=== PATIENT | male | born 1980 | race Caucasian/White ===

== ENCOUNTER 2018-12-04 18:00 | Emergency (ER) | payer MEDICAID ==
[~2018-12-04] VITALS: Ht 180.3 cm; Wt 97.5 kg
[~2018-12-04 18:00] MED LIST: ALBU17AE3 IH; CEFP500T4 PO; CYCL10TA9 PO; FAMO20TA5 PO; FLT05NA16 NSEACH; HYDR-3456 PO; IBP800T PO; METH4TAB PO; MPR22T TP; NAPR-1071 PO; NAPR-243 PO; OMEP40CA36 PO; PRD20T PO
[2018-12-04] MEDS ORDERED: LACTATED RINGERS 1,000 ML IV ONE ×2 (18:09→19:00)
[2018-12-04 18:15] LABS: HEMOGLOBIN 15.7 G/DL (13.3-17.7); RED CELL DISTRIBUTION WIDTH 13.4 % (10.0-14.5); WHITE BLOOD COUNT 10.5 10^3/uL (4.3-11.0)
--- NOTE | 2018-12-04 18:22 | ED General ---
General Chief Complaint: Dizziness/Syncope Stated Complaint: SYNCOPE Nursing Triage Note: PT STATES HE WAS OUTSIDE ALL DAY WAITING ON HIS "RELATION" ALL DAY AND DID NOT GO INSIDE HIS HOME TO GET A DRINK OF WATER OR LEAVE HEAT. EMS REPORTS PT WAS LAYING ON HIS BED WHEN THEY ARRIVED. PT DENIES INJURY OR LOC. Nursing Sepsis Screen: No Definite Risk Source of Information: Patient (PT IS VERY LIMITED AND VAGUE HISTORIAN IN ALL ASPECTS, IS . SLIGHTLY SLOW MENTATION), Spouse (VERY LIMITED AND VAGUE HISTORIAN. ) History of Present Illness Date Seen by Provider: Dec 04, 2018 Time Seen by Provider: 18:02 Initial Comments PT ARRIVES VIA EMS FROM HOME, WITH PT HAS BEEN OUT IN THE HEAT SINCE 0900 THIS AM PT STATES HE HAD A CUP OF COFFEE THIS AM, OTHERWISE HAS NOT HAD ANYTHING TO DRINK ALL DAY, AND HAS NOT EATEN ALL DAY LAST VOID WAS ON WAKING THIS AM PT STATES HE WAS WAITING OUTSIDE FOR A FAMILY MEMBER TO SHOW UP, SO HE COULD HELP THEM MOVE. STATES THEY SHOWED UP AND THEN HE HELPED THEM MOVE FOR THE REST OF THE DAY--CLAIMS HE NEVER WENT INSIDE ALL DAY TO COOL OFF OR TO GET SOMETHING TO EAT OR DRINK WHEN HE GOT HOME, HE WAS SITTING ON THE END OF THE BED AND REPORTEDLY PASSED OUT FOR UNKNOWN LENGTH OF TIME-- WAS PRESENT, BUT IS UNABLE TO GIVE ANY DETAILS. PT DOES HAVE A HISTORY OF SEIZURES, AND STATES HE MIGHT HAVE BEEN SHAKING--NOT SURE NO INJURY, DID NOT FALL OFF THE BED OR HIT HEAD. NO INCONTINENCE WHEN EMS ARRIVED AT THE SCENE, PT WAS LAYING ON THE BED AND ROUSED TO STERNAL RUB ACCUCHECK 108 BY EMS PT C/O SLIGHT LEFT CHEST PAIN AND SLIGHT HEADACHE AT THIS TIME NO VISION CHANGES NO NAUSEA/VOMITING/DIARRHEA OR ABDOMINAL PAIN NO PALPITATIONS NO SHORTNESS OF BREATH--HAS HISTORY OF ASTHMA BUT NO PROBLEMS RECENTLY NO NECK OR BACK PAIN AT THIS TIME--HAS HISTORY OF CHRONIC BACK PAIN --TAKES IBUPROFEN AND UNKNOWN MUSCLE RELAXANT BUT HAS NOT TAKEN ANY MEDICATIONS TODAY NO PARESTHESIAS OR MOTOR DEFICITS--NO PROBLEMS WALKING OR TALKING PT HAS HAD SIMILAR-- STATES HE HAD A "HEAT STROKE" ONCE IN THE PAST, BUT CANNOT GIVE ANY DETAILS. PT CLAIMS HE HAS ONLY SLEPT 5 HOURS IN THE LAST 72 HOURS, NOT SURE WHY, THINKS "ACID REFLUX KEEPING HIM UP" PCP: DR. MILTON Allergies and Home Medications Allergies Coded Allergies: Penicillins (Unverified Allergy, Severe, ANAPHYLAXIS, 11/20/11) Home Medications Cefprozil 500 Mg Tablet, 1 EACH PO BID Prescribed by: PING HESTER on 04/18/142102 Famotidine 20 Mg Tablet, 20 MG PO DAILY, (Reported) Fluticasone Propionate 16 Gm [place], 2 SPRAYS NSEACH DAILY Prescribed by: PING HESTER on 04/18/142102 Naproxen 500 Mg Tablet, 500 MG PO BID PRN for pain Prescribed by: ISHA PORTER on 03/27/17221 Omeprazole 40 Mg Capsule.dr, 40 MG PO DAILY Prescribed by: ISHA PORTER on 03/27/17221 Patient Home Medication List Home Medication List Reviewed: Yes Review of Systems Review of Systems Constitutional: see HPI EENTM: other (RECENT SINUS AND EAR INFECTION--WAS ON ANTIBIOTICS, HAS FINISHED THOSE, SYMPTOMS BETTER) Respiratory: no symptoms reported Cardiovascular: see HPI, chest pain, syncope Gastrointestinal: No abdominal pain, No diarrhea, No nausea, No vomiting Genitourinary: see HPI, decreased output Musculoskeletal: no symptoms reported Skin: no symptoms reported Psychiatric/Neurological: See HPI Hematologic/Lymphatic: No Symptoms Reported Past [id number] Hx Patient Social History Alcohol Use: Past History (HISTORY OF HEAVY USE--"5 OR 6 BOTTLES A DAY" --BUT PT NOT EXACTLY SURE HOW MUCH HE USED TO DRINK, CLAIMS HE QUIT IN 1999) Recreational Drug Use: No (DENIES DRUG USE) Smoking Status: Current Everyday Smoker (NOT SURE HOW MANY HE SMOKES A DAY--< 1/2 PPD, HE THINKS) Type Used: Cigarettes 2nd Hand Smoke Exposure: Yes Recent Foreign Travel: No Contact w/Someone Who Travel: No Recent Infectious Disease Expo: No Recent Hopitalizations: No Physical Abuse: No Sexual Abuse: No Mistreated: No Fear: No Past Medical History Surgeries: No Respiratory: Yes Asthma Cardiac: No Neurological: Yes (SEIZURES "ALL OF LIFE" BUT NEVER SEEN NEUROLOGIST OR BEEN ON SEIZURE MEDICATIONS) Seizure Disorder Gastrointestinal: Yes Gastroesophageal Reflux Musculoskeletal: Yes Chronic Back Pain Endocrine: No HEENT: No Cancer: No Psychosocial: No Integumentary: No Blood Disorders: No Family Medical History No Pertinent Family Hx Physical Exam Vital Signs Vital Signs - First Documented 12/04/18 18:11 Temp 97.1 Pulse 86 Resp 18 B/P (MAP) 121/89 (100) Pulse Ox 98 O2 Delivery Room Air Capillary Refill : Less Than 3 Seconds Height, Weight, BMI Height: 5'11.00" Weight: 215lbs. oz. 97.946938ur; 27.89 BMI Method:Stated General Appearance: Other (EXTREMELY MALODOROUS--BODY ODOR, SITTING UPRIGHT, SMILING, SLIGHTLY SLOW MENTATION AND VERY FLAT AFFECT. ( PT'S WITH SAME MENTATION) ) HEENT: PERRL/EOMI, TMs Normal, Normal ENT Inspection, Pharynx Normal, Other (POOR DENTITION; CONJUNCTIVA MILDLY INFLAMED BILATERALLY, NO EXUDATE) Neck: Full Range of Motion, Normal Inspection, Non Tender, Supple; No Carotid Bruit, No JVD Respiratory: Normal Breath Sounds, No Accessory Muscle Use, No Respiratory Distress, Other (MILD LEFT UPPER CHEST TENDERNESS--PALPATION REPRODUCES PAIN ) Cardiovascular: Regular Rate, Rhythm, No Edema, No JVD, No Murmur, Normal Per ipheral Pulses Gastrointestinal: Normal Bowel Sounds, No Organomegaly, No Pulsatile Mass, Non Tender, Soft Back: Normal Inspection, No CVA Tenderness Extremity: Normal Capillary Refill, Normal Inspection, Normal Range of Motion, Non Tender, No Calf Tenderness, No Pedal Edema Neurologic/Psychiatric: Alert, Oriented x3 (BUT SLIGHTLY SLOW MENTATION), No Motor/Sensory Deficits, 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 Norm as Tested; No Abnormal Cerebellar Tests Skin: Normal Color, Warm/Dry, Tattoos/Piercings (TATTOOS) Progress/Results/Core Measures Suspected Sepsis Recent Fever Within 48 Hours: No Infection Criteria Present: None New/Unexplained Altered Menta: No Sepsis Screen: No Definite Risk SIRS Temperature:97.1 Pulse: 86 Respiratory Rate: 18 Laboratory Tests 12/04/18 18:07: White Blood Count 10.5 Blood Pressure 121 /89 Mean: 100 Laboratory Tests 12/04/18 18:07: Creatinine 1.26, INR Comment 1.1, Platelet Count 214, Total Bilirubin 0.9 Results/Orders Lab Results Laboratory Tests Test 12/04/18 18:07 12/04/18 18:36 Range/Units White Blood Count 10.5 4.3-11.0 10^3/uL Red Blood Count 4.71 4.35-5.85 10^6/uL Hemoglobin 15.7 13.3-17.7 G/DL Hematocrit 45 40-54 % Mean Corpuscular Volume 96 80-99 FL Mean Corpuscular Hemoglobin 33 25-34 PG Mean Corpuscular Hemoglobin Concent 35 32-36 G/DL Red Cell Distribution Width 13.4 10.0-14.5 % Platelet Count 214 130-400 10^3/uL Mean Platelet Volume 10.0 7.4-10.4 FL Prothrombin Time 14.1 12.2-14.7 SEC INR Comment 1.1 0.8-1.4 Activated Partial Thromboplast Time 31 24-35 SEC Sodium Level 140 135-145 MMOL/L Potassium Level 3.4 L 3.6-5.0 MMOL/L Chloride Level 107 98-107 MMOL/L Carbon Dioxide Level 23 21-32 MMOL/L Anion Gap 10 5-14 MMOL/L Blood Urea Nitrogen 11 7-18 MG/DL Creatinine 1.26 0.60-1.30 MG/DL Estimat Glomerular Filtration Rate > 60 BUN/Creatinine Ratio 9 Glucose Level 148 H 70-105 MG/DL Calcium Level 9.5 8.5-10.1 MG/DL Corrected Calcium 9.3 8.5-10.1 MG/DL Magnesium Level 2.1 1.8-2.4 MG/DL Total Bilirubin 0.9 0.1-1.0 MG/DL Aspartate Amino Transf (AST/SGOT) 26 5-34 U/L Alanine Aminotransferase (ALT/SGPT) 72 H 0-55 U/L Alkaline Phosphatase 66 40-136 U/L Total Creatine Kinase 60 30-200 U/L Creatine Kinase MB 0.7 <6.6 NG/ML Troponin I < 0.028 <0.028 NG/ML B-Type Natriuretic Peptide < 10.0 <100.0 PG/ML Total Protein 7.1 6.4-8.2 GM/DL Albumin 4.3 3.2-4.5 GM/DL Acetaminophen Level < 10 L 10-30 UG/ML Serum Alcohol < 10 <10 MG/DL Urine Color BENITEZ H Urine Clarity CLEAR Urine pH 5 5-9 Urine Specific [place] 1.025 H 1.016-1.022 Urine Protein 1+ H NEGATIVE Urine Glucose (UA) NEGATIVE NEGATIVE Urine Ketones 1+ H NEGATIVE Urine Nitrite NEGATIVE NEGATIVE Urine Bilirubin 1+ H NEGATIVE Urine Urobilinogen 4 H NORMAL MG/DL Urine Leukocyte Esterase 1+ H NEGATIVE Urine RBC (Auto) NEGATIVE NEGATIVE Urine RBC NONE /HPF Urine WBC 5-10 H /HPF Urine Squamous Epithelial Cells 5-10 /HPF Urine Crystals NONE /LPF Urine Bacteria TRACE /HPF Urine Casts PRESENT /LPF Urine Hyaline Casts 5-10 H /LPF Urine Mucus LARGE H /LPF Urine Culture Indicated YES Urine Opiates Screen NEGATIVE NEGATIVE Urine Oxycodone Screen NEGATIVE NEGATIVE Urine Methadone Screen NEGATIVE NEGATIVE Urine Propoxyphene Screen NEGATIVE NEGATIVE Urine Barbiturates Screen NEGATIVE NEGATIVE Ur Tricyclic Antidepressants Screen NEGATIVE NEGATIVE Urine Phencyclidine Screen NEGATIVE NEGATIVE Urine Amphetamines Screen NEGATIVE NEGATIVE Urine Methamphetamines Screen NEGATIVE NEGATIVE Urine Benzodiazepines Screen NEGATIVE NEGATIVE Urine Cocaine Screen NEGATIVE NEGATIVE Urine Cannabinoids Screen NEGATIVE NEGATIVE My Orders Orders - PING HESTER DO Ed Iv/Invasive Line Start (12/04/18 18:09) Ekg Tracing (12/04/18 18:09) Monitor-Rhythm Ecg Trace Only (12/04/18 18:09) Orthostatic Vital Signs (Adult (12/04/18 18:09) Ct Head Wo-R/O Stroke (12/04/18 18:09) Chest 1 View, Ap/Pa Only (12/04/18 18:09) Ed Iv/Invasive Line Start (12/04/18 18:09) Lactated Ringers (Lr 1000 Ml Iv Solution (12/04/18 18:09) Acetaminophen (12/04/18 18:09) Alcohol (12/04/18 18:09) BNP (12/04/18 18:09) Cbc No Diff (12/04/18 18:09) Comprehensive Metabolic Panel (12/04/18 18:09) Creatine Kinase (12/04/18 18:09) Creatine Kinase Mb (12/04/18 18:09) Drug Screen Stat (Urine) (12/04/18 18:09) Magnesium (12/04/18 18:09) Protime With Inr (12/04/18 18:09) Partial Thromboplastin Time (12/04/18 18:09) Ua Culture If Indicated (12/04/18 18:09) Troponin I (12/04/18 18:09) Ed Iv/Invasive Line Start (12/04/18 19:00) Lactated Ringers (Lr 1000 Ml Iv Solution (12/04/18 19:00) Urine Culture (12/04/18 18:36) Medications Given in ED Current Medications Medications Dose Ordered Sig/Alberto Route Start Time Stop Time Status Last Admin Dose Admin Lactated Ringer's 1,000 ml @ 0 mls/hr Q0M ONCE IV 12/04/18 18:09 12/04/18 18:12 DC 12/04/18 19:04 0 MLS/HR Vital Signs/I&O 12/04/18 18:11 Temp 97.1 Pulse 86 Resp 18 B/P (MAP) 121/89 (100) Pulse Ox 98 O2 Delivery Room Air Capillary Refill : Less Than 3 Seconds Blood Pressure Mean: 100 Progress Note : Progress Note NO C/O CHEST PAIN OR HEADACHE OR ANY OTHER SYMPTOMS FOR REMAINDER OF ER STAY PT VOIDED SHORTLY AFTER ARRIVAL VITALS REMAINED STABLE, ORTHOSTATICS NEGATIVE MENTATION SIGNIFICANTLY IMPROVED DURING ER COURSE--NO LONGER WITH SLOW MENTATION, AND IS MUCH LESS VAGUE WITH ANSWERS, ETC. MORE ANIMATED--NO LONGER WITH FLAT AFFECT ECG Initial ECG Impression Date: Dec 04, 2018 Initial ECG Impression Time: 18:42 Initial ECG Rate: 75 Initial ECG Rhythm: Normal Sinus Diagnostic Imaging Comments CXR--ATELECTASIS LEFT BASE, OTHERWISE NO ACUTE PROCESS CT HEAD--NO ACUTE PROCESS PER RADIOLOGIST REPORTS AT 1859 Reviewed: Reviewed by Me Departure Impression Primary Impression: Syncope Additional Impressions: Heat exhaustion Mild dehydration UTI (urinary tract infection) Hx of seizure disorder Disposition: 01 HOME, SELF-CARE Condition: Improved Departure-Patient Inst. Referrals: NO,LOCAL PHYSICIAN (PCP/Family) Primary Care Physician Patient Instructions: Syncope (Fainting) (DC), Heat Exhaustion and Heat Stroke (DC), Urinary Tract Infection, Adult (DC), Dehydration, Adult (DC) Add. Discharge Instructions: AVOID BEING IN THE HEAT FOR THE NEXT FEW DAYS AFTER THAT, WHEN YOU ARE IN THE HEAT--GET IN COOL ENVIRONMENT FOR 15 MINUTES OF EACH HOUR. WHEN YOU ARE IN THE HEAT, DRINK EQUAL AMOUNTS OF WATER AND GATORADE, AND DRINK ENOUGH SO YOU ARE URINATING EVERY 2 HOURS DO NOT SKIP MEALS FOLLOW UP WITH YOUR DR IN 1-2 DAYS FOR FURTHER CARE RETURN TO ER IF SYMPTOMS RETURN All discharge instructions reviewed with patient and/or family. Voiced understanding. Scripts Sulfamethoxazole/Trimethoprim (Bactrim Ds Tablet) 1 Each Tablet 1 EACH PO BID, #20 TAB Prov: PING HESTER DO 12/04/18 PING HESTER DO Dec 04, 2018 18:22
[2018-12-04 18:25] LABS: INR 1.1 (0.8-1.4); PROTHROMBIN TIME PATIENT 14.1 SEC (12.2-14.7)
[2018-12-04 18:33] LABS: ALANINE AMINOTRANSFERASE 72 U/L (0-55); ALBUMIN 4.3 GM/DL (3.2-4.5); ALKALINE PHOSPHATASE 66 U/L (40-136); BILIRUBIN,TOTAL 0.9 MG/DL (0.1-1.0); BUN/CREATININE RATIO 9; CALCIUM 9.5 MG/DL (8.5-10.1); CARBON DIOXIDE 23 MMOL/L (21-32); CHLORIDE 107 MMOL/L (98-107); CREATINE KINASE 60 U/L (30-200); CREATININE SERUM 1.26 MG/DL (0.60-1.30); GFR ESTIMATED > 60; GLUCOSE 148 MG/DL (70-105); MAGNESIUM 2.1 MG/DL (1.8-2.4); POTASSIUM 3.4 MMOL/L (3.6-5.0); SODIUM 140 MMOL/L (135-145); TOTAL PROTEIN 7.1 GM/DL (6.4-8.2)
[2018-12-04 18:39] LABS: ACETAMINOPHEN < 10 UG/ML (10-30)
[2018-12-04 18:40] LABS: CREATINE KINASE MB 0.7 NG/ML (<6.6)
--- NOTE | 2018-12-04 18:41 | Diagnostic Imaging Report ---
PROCEDURE: CT head wo r/o stroke. TECHNIQUE: Multiple contiguous axial images were obtained through the brain without the use of intravenous contrast. Auto Exposure Controls were utilized during the CT exam to meet ALARA standards for radiation dose reduction. INDICATION: Headache for four days. COMPARISON: Comparison is made with prior head CT from 03/27/2017. FINDINGS: The ventricles and sulci are within normal limits. No sulcal effacement or midline shift is detected. No acute intra-axial or extra-axial hemorrhage is detected. Cisterns are patent. Visualized paranasal sinuses demonstrate mucosal thickening of the ethmoids. IMPRESSION: No acute intracranial process is detected. Dictated by: Dictated on workstation # [id number]
--- NOTE | 2018-12-04 18:42 | Diagnostic Imaging Report ---
INDICATION: Headache for four days; chest pain, left sided for three days. EXAMINATION: Chest, 12/04/2018. FINDINGS: Atelectasis is noted in the left lung base. No infiltrates or significant effusions. No pneumothorax. Heart is unremarkable. Pulmonary vasculature is normal. IMPRESSION: 1. Left base atelectasis. Dictated by: Dictated on workstation # [id number]
[2018-12-04 18:56] LABS: BILIRUBIN,URINE 1+ (NEGATIVE); CLARITY,URINE CLEAR; COLOR,URINE AMBER; GLUCOSE, URINE (UA) NEGATIVE (NEGATIVE); KETONES,URINE 1+ (NEGATIVE); LEUKOCYTE ESTERASE ,URINE 1+ (NEGATIVE); NITRITE,URINE NEGATIVE (NEGATIVE); PH,URINE 5 (5-9); PROTEIN,URINE 1+ (NEGATIVE); UROBILINOGEN,URINE 4 MG/DL (NORMAL)
[2018-12-04 19:07] LABS: BACTERIA,URINE TRACE /HPF
[2018-12-04 19:15] LABS: AMPHETAMINE SCREEN, URINE NEGATIVE (NEGATIVE); BARBITURATE SCREEN URINE NEGATIVE (NEGATIVE); BENZODIAZEPINES SCREEN URINE NEGATIVE (NEGATIVE); CANNABINOID SCREEN, URINE NEGATIVE (NEGATIVE); COCAINE SCREEN URINE NEGATIVE (NEGATIVE); METHADONE STAT NEGATIVE (NEGATIVE); METHAMPHETAMINE SCREEN URINE S NEGATIVE (NEGATIVE); OPIATE SCREEN URINE NEGATIVE (NEGATIVE); OXYCODONE STAT NEGATIVE (NEGATIVE); PROPOXYPHENE STAT NEGATIVE (NEGATIVE); TRICYCLIC ANTIDEPRESSANTS SCRE NEGATIVE (NEGATIVE)
[2018-12-04] MEDS ORDERED: SULF1TAB35 PO (19:23)
[2018-12-04 20:00] VITALS: BP 116/78
== END 2018-12-04 20:06 | disposition home or self-care (01) ==
LOC: EDUNIT# 18:00 → ER 18:00
DX: T67.5XXA Heat exhaustion, unspecified, initial encounter (principal); R55 Syncope and collapse; E86.0 Dehydration; N39.0 Urinary tract infection, site not specified; G40.909 Epilepsy, unspecified, not intractable, without status epilepticus; J45.909 Unspecified asthma, uncomplicated; K21.9 Gastro-esophageal reflux disease without esophagitis; F17.210 Nicotine dependence, cigarettes, uncomplicated; Z91.14 Patient's other noncompliance with medication regimen; Z88.0 Allergy status to penicillin; Z79.51 Long term (current) use of inhaled steroids
CPT/HCPCS: 36415; 70450; 71045; 80053; 80306; 80320; 80329; 81000; 82550; 82553; 83735; 83880; 84484; 85027; 85610; 85730; 87088; 93005; 93041; 96360